=== PATIENT | female | born 1980 | race Caucasian/White ===

== ENCOUNTER → 2016-07-28 | Outpatient (CLI) | payer BC ==
[~2016-07-28] MED LIST: AUGMENTIN 875875 MG PO; BACTRIM DS 8001 TA1 PO; DOXYCYCLINE100 M3 PO; DUONEB 3 MG/3 ML3 M1 INH; FLEXERIL5 MG PO; FLONASE 0.05% 121 EA NAS; KENALOG0.1% TP; LEVAQUIN250 MG PO; LEVAQUIN750 MG PO; LEVOFLOXACIN500 MG PO; MOTRIN800 MG PO; PREDNISONE20 M1 PO; ROBITUSSIN AC 110 ML PO; Tessalon Perle100 MG PO; VENTOLIN H0.09 MG/AC INH; ZYRTEC10 MG PO
== END | disposition home or self-care (01) ==
LOC: US 02:50
DX: E03.9 Hypothyroidism, unspecified (principal)

== ENCOUNTER → 2016-11-29 | Outpatient (CLI) | payer BC | END | disposition home or self-care (01) | LOC: MAMMO 01:28 | DX: N63 Unspecified lump in breast (principal); N64.4 Mastodynia ==

== ENCOUNTER → 2016-12-20 | Outpatient (CLI) | payer BC ==
[2016-12-20 14:50] LABS: BASO % 0.2 % (0.0-1.0); EOS # 0.2 10*3/uL (0.0-0.4); EOS % 2.5 % (1.0-4.0); HEMATOCRIT 37.6 % (37.0-47.0); HEMOGLOBIN 12.2 g/dl (12.0-16.0); LYMPH # 2.8 10*3/uL (1.3-4.4); LYMPH % 34.7 % (27.0-41.0); MEAN CELL VOLUME 86.8 fl (81.0-99.0); MEAN CORPUSCULAR HGB 28.2 pg (27.0-31.0); MEAN CORPUSCULAR HGB CONC 32.4 g/dl (33.0-37.0); MEAN PLATELET VOLUME 9.3 fl (9.6-12.3); MONO # 0.5 10*3/uL (0.1-1.0); MONO % 6.2 % (3.0-9.0); NEUT # 4.5 10*3/uL (2.3-7.9); PLATELET COUNT AUTOMATED 344 10*3/uL (130-400); RED BLOOD COUNT 4.33 10*6/uL (4.10-5.10); RED CELL DISTRI WIDTH 14.5 % (0-14.5); WHITE BLOOD COUNT 8.1 10*3/uL (4.8-10.8)
[2016-12-20 15:17] LABS: ALBUMIN 3.5 gm/dl (3.1-4.5); ALKALINE PHOSPHATASE 63 U/L (45-117); BUN 11 mg/dl (7-24); CHLORIDE 109 mmol/L (98-107); CHOLESTEROL 205 mg/dL (<200); CREATININE 0.79 mg/dL (0.55-1.02); FREE T4 1.16 ng/dl (0.76-1.46); HDL CHOLESTEROL 28 mg/dl (40-60); LDL CHOLESTEROL 155 mg/dL (9-159); POTASSIUM 4.1 mmol/L (3.5-5.1); SGOT/AST 9 IU/L (3-35); SGPT/ALT 16 U/L (12-78); SODIUM 140 mmol/L (136-145); TOTAL PROTEIN 7.2 gm/dL (6.4-8.2); TRIGLYCERIDES 110 mg/dl (<150); VLDL CHOLESTEROL 22 mg/dL (6-40)
[2016-12-21 07:06] LABS: THYROID PEROXIDASE (TPO) AB >600 IU/mL (0-34)
[2016-12-21 13:05] LABS: THYROGLOBULIN ANTIBODY 18.1 IU/mL (0.0-0.9)
== END | disposition home or self-care (01) ==
LOC: LAB 13:41
PROVIDERS: Internal Medicine Endocrinology, Diabetes & Metabolism
DX: J45.21 Mild intermittent asthma with (acute) exacerbation (principal); M54.08 Panniculitis affecting regions of neck and back, sacral and sacrococcygeal region; K59.01 Slow transit constipation; J45.991 Cough variant asthma; R06.00 Dyspnea, unspecified; G60.3 Idiopathic progressive neuropathy; E55.9 Vitamin D deficiency, unspecified; E03.8 Other specified hypothyroidism

== ENCOUNTER → 2017-03-01 | Outpatient (CLI) | payer BC ==
[2017-03-01 14:17] LABS: BUN 10 mg/dl (7-24); CHLORIDE 108 mmol/L (98-107); CREATININE 0.85 mg/dL (0.55-1.02); FREE T4 1.06 ng/dl (0.76-1.46); POTASSIUM 4.1 mmol/L (3.5-5.1); SODIUM 141 mmol/L (136-145)
== END | disposition home or self-care (01) ==
LOC: LAB 13:15
PROVIDERS: Internal Medicine Endocrinology, Diabetes & Metabolism
DX: E03.8 Other specified hypothyroidism (principal); K21.9 Gastro-esophageal reflux disease without esophagitis; K59.01 Slow transit constipation; M50.20 Other cervical disc displacement, unspecified cervical region

== ENCOUNTER 2017-05-05 22:56 | Emergency (ER) | payer BC ==
[~2017-05-05] VITALS: Ht 160 cm; Wt 124.7 kg
[2017-05-05] MEDS ORDERED: Synthroid,Lev150 MCG PO (23:14)
[2017-05-05] MEDS ORDERED: PREDNISONE50 MG PO (23:31)
[2017-05-05] MEDS ORDERED: CLARITIN10 MG PO (23:31)
[2017-05-05] MEDS ORDERED: FLONASE ALLERG9.9 ML NAS (23:31)
== END 2017-05-05 23:50 | disposition home or self-care (01) ==
LOC: ED 22:56
DX: J30.2 Other seasonal allergic rhinitis (principal); F17.200 Nicotine dependence, unspecified, uncomplicated; F10.10 Alcohol abuse, uncomplicated; Z79.899 Other long term (current) drug therapy

== ENCOUNTER → 2017-05-09 | Outpatient (CLI) | payer BC ==
[~2017-05-09] MED LIST changes: +CLARITIN10 MG PO; +FLONASE ALLERG9.9 ML NAS; +PREDNISONE50 MG PO; +Synthroid,Lev150 MCG PO
== END | disposition home or self-care (01) ==
LOC: RAD 15:14
DX: J40 Bronchitis, not specified as acute or chronic (principal)

== ENCOUNTER → 2017-06-21 | Outpatient (CLI) | payer BC ==
[2017-06-21 14:33] LABS: BASO % 0.1 % (0.0-1.0); EOS # 0.2 10*3/uL (0.0-0.4); EOS % 2.7 % (1.0-4.0); HEMATOCRIT 37.8 % (37.0-47.0); HEMOGLOBIN 11.9 g/dl (12.0-16.0); LYMPH # 2.6 10*3/uL (1.3-4.4); MEAN CELL VOLUME 84.4 fl (81.0-99.0); MEAN CORPUSCULAR HGB 26.6 pg (27.0-31.0); MEAN CORPUSCULAR HGB CONC 31.5 g/dl (33.0-37.0); MEAN PLATELET VOLUME 8.8 fl (9.6-12.3); MONO # 0.4 10*3/uL (0.1-1.0); MONO % 5.8 % (3.0-9.0); NEUT # 4.2 10*3/uL (2.3-7.9); PLATELET COUNT AUTOMATED 400 10*3/uL (130-400); RED BLOOD COUNT 4.48 10*6/uL (4.10-5.10); RED CELL DISTRI WIDTH 15.2 % (0-14.5); WHITE BLOOD COUNT 7.5 10*3/uL (4.8-10.8)
[2017-06-21 15:02] LABS: ALBUMIN 3.6 gm/dl (3.1-4.5); ALKALINE PHOSPHATASE 60 U/L (45-117); BUN 12 mg/dl (7-24); CHLORIDE 108 mmol/L (98-107); CHOLESTEROL 221 mg/dL (<200); CREATININE 0.74 mg/dL (0.55-1.02); FREE T4 1.21 ng/dl (0.76-1.46); HDL CHOLESTEROL 33 mg/dl (40-60); LDL CHOLESTEROL 165 mg/dL (9-159); POTASSIUM 4.3 mmol/L (3.5-5.1); SGOT/AST 12 IU/L (3-35); SGPT/ALT 18 U/L (12-78); SODIUM 139 mmol/L (136-145); TRIGLYCERIDES 113 mg/dl (<150); VLDL CHOLESTEROL 23 mg/dL (6-40)
== END | disposition home or self-care (01) ==
LOC: LAB 14:12
PROVIDERS: Internal Medicine Endocrinology, Diabetes & Metabolism
DX: E78.2 Mixed hyperlipidemia (principal); E03.8 Other specified hypothyroidism; K21.9 Gastro-esophageal reflux disease without esophagitis; K59.01 Slow transit constipation; E55.9 Vitamin D deficiency, unspecified

== ENCOUNTER 2018-06-28 20:24 | Emergency (ER) | payer BC ==
[~2018-06-28] VITALS: Ht 162.5 cm; Wt 113.4 kg
[2018-06-28] MEDS ORDERED: DELTASONE20 M1 PO (22:00)
[2018-06-28] MEDS ORDERED: ZITHROMAX250 MG PO (22:00)
[2018-06-28] MEDS ORDERED: DIFLUCAN150 MG PO (22:00)
== END 2018-06-28 22:02 | disposition home or self-care (01) ==
LOC: ED 20:24
DX: J40 Bronchitis, not specified as acute or chronic (principal); Z79.899 Other long term (current) drug therapy

== ENCOUNTER → 2020-12-08 | Outpatient (CLI) | payer OTHER ==
[~2020-12-08] MED LIST changes: +DELTASONE20 M1 PO; +DIFLUCAN150 MG PO; +ZITHROMAX250 MG PO
== END | disposition home or self-care (01) ==
LOC: US 09:15
PROVIDERS: ATTEND Nurse Practitioner
DX: D25.9 Leiomyoma of uterus, unspecified (principal); N92.1 Excessive and frequent menstruation with irregular cycle